=== PATIENT | female | born 1995 | race Caucasian/White ===

== ENCOUNTER 2017-06-06 02:53 | Emergency (ER) | payer OTHER ==
[2017-06-06] MEDS ORDERED: ONDANSETRON HCL INJ/PF 4 MG/2 ML SDV IV ONE (03:09)
[2017-06-06] MEDS ORDERED: NORMAL SALINE 1000 ML 1,000 ML IV PRN (03:09)
--- NOTE | 2017-06-06 03:11 | ER Document Report ---
ED Substance Abuse / Acc. OD <JC HENDERSON - Last Filed: 06/06/17 10:39> - General Mode of Arrival: Medic Information source: Patient, Friend, Emergency Med Personnel - [facility] Patient complains to provider of: Alcohol abuse Onset: Other - This evening Onset/Duration: Gradual Quality of pain: Achy Severity: None Pain Level: Denies Overdose of: Alcohol Associated Symptoms: None Similar symptoms previously: Yes Recently seen / treated by doctor: No <SAM DAWSON - Last Filed: 06/08/17 01:46> - General Chief Complaint: ETOH Abuse Stated Complaint: POSSIBLE INTOXICATION WITH ETOH Time Seen by Provider: 06/06/17 03:01 Notes: 2-year-old female presents to ED via EMS after being found laying on the ground outside of her [employer] tonight after drinking to the vodka, tequila, 2 beers , and to "trash cans ". Patient is very inebriated. Friend states the patient became extremely inebriated and states she could not do anything and lay down on the ground. Friend appears to be sober. Police was called who called EMS to bring her to the emergency room (SAM DAWSON) Past Medical History - General Information source: Patient - Social History Smoking Status: Never Smoker Cigarette use (# per day): No Chew tobacco use (# tins/day): No Smoking Education Provided: No Frequency of alcohol use: Social - Alcohol tonight Drug Abuse: None Occupation: active duty [facility]: [facility] Family History: Reviewed & Not Pertinent Patient has suicidal ideation: No Patient has homicidal ideation: No - Past Medical History Cardiac Medical History: Reports: None Pulmonary Medical History: Reports: None EENT Medical History: Reports: None Neurological Medical History: Reports: None Endocrine Medical History: Reports: None Renal/ Medical History: Reports: None Malignancy Medical History: Reports: None GI Medical History: Reports: None Musculoskeltal Medical History: Reports None Skin Medical History: Reports None Psychiatric Medical History: Reports: None Traumatic Medical History: Reports: None Infectious Medical History: Reports: None Surgical Hx: Negative Past Surgical History: Reports: None - Immunizations Immunizations up to date: Yes <SAM DAWSON - Last Filed: 06/08/17 01:46> Review of Systems - Review of Systems Constitutional: No symptoms reported EENT: No symptoms reported Cardiovascular: No symptoms reported Respiratory: No symptoms reported Gastrointestinal: No symptoms reported Genitourinary: No symptoms reported Female Genitourinary: No symptoms reported Musculoskeletal: No symptoms reported Skin: No symptoms reported Hematologic/Lymphatic: No symptoms reported Neurological/Psychological: No symptoms reported, Other - Inebriated -: Yes All other systems reviewed and negative <SAM DAWSON - Last Filed: 06/08/17 01:46> Physical Exam - Vital signs Interpretation: Normal - General General appearance: Appears well, Alert - HEENT Head: Normocephalic, Atraumatic Eyes: Normal Pupils: PERRL - Respiratory Respiratory status: No respiratory distress Chest status: Nontender Breath sounds: Normal Chest palpation: Normal - Cardiovascular Rhythm: Regular Heart sounds: Normal auscultation Murmur: No - Abdominal Inspection: Normal Distension: No distension Bowel sounds: Normal Tenderness: Nontender Organomegaly: No organomegaly - Back Back: Normal, Nontender - Extremities General upper extremity: Normal inspection, Nontender, Normal color, Normal ROM , Normal temperature General lower extremity: Normal inspection, Nontender, Normal color, Normal ROM , Normal temperature, Normal weight bearing. No: Tahira's sign - Neurological Neuro grossly intact: Yes Cognition: Normal Orientation: AAOx4 Stevens Coma Scale Eye Opening: Spontaneous Stevens Coma Scale Verbal: Oriented [place] Coma Scale Motor: Obeys Commands Stevens Coma Scale Total: 15 Speech: Normal Motor strength normal: LUE, RUE, LLE, RLE Sensory: Normal - Psychological Associated symptoms: Confused, Uncooperative, Other - Inebriated - Skin Skin Temperature: Warm Skin Moisture: Dry Skin Color: Normal <SAM DAWSON - Last Filed: 06/08/17 01:46> - Vital signs Vitals: Temp Pulse Resp BP Pulse Ox 98.2 F 83 16 136/82 H 98 06/06/17 03:00 06/06/17 03:00 06/06/17 03:00 06/06/17 03:00 06/06/17 03:00 Course - Laboratory Result Diagrams: 06/06/17 03:20 06/06/17 03:55 <JC HENDERSON - Last Filed: 06/06/17 10:39> - Laboratory Result Diagrams: 06/06/17 03:20 06/06/17 03:55 <SAM DAWSON - Last Filed: 06/08/17 01:46> - Re-evaluation Re-evalutation: 06/06/17 07:39 Report given to Jc HAMPTON. She will follow-up on this young lady's alcohol and discharge home when patient is alert and oriented and able to walk. (SAM DAWSON) - Vital Signs Vital signs: Temp Pulse Resp BP Pulse Ox 97.5 F 70 16 105/65 98 06/06/17 10:39 06/06/17 10:39 06/06/17 10:39 06/06/17 10:39 06/06/17 10:39 - Laboratory Laboratory results interpreted by me: 06/06/17 03:55 Sodium 146.2 H Chloride 109 H Discharge <JC HENDERSON - Last Filed: 06/06/17 10:39> <SAM DAWSON - Last Filed: 06/08/17 01:46> - Discharge Clinical Impression: Alcohol intoxication Qualifiers: Complication of substance-induced condition: with unspecified complication Qualified Code(s): F10.929 - Alcohol use, unspecified with intoxication, unspecified Condition: Stable Disposition: HOME, SELF-CARE Additional Instructions: Please do not drink to this capacity again. Return immediately for any new or worsening symptoms. Follow up with primary care provider, call tomorrow to make followup appointment.
[2017-06-06 03:30] LABS: ABSOLUTE EOSINOPHILS # (AUTO) 0.1 10^3/uL (0.0-0.6); ABSOLUTE LYMPHOCYTES (AUTO) 3.7 10^3/uL (0.5-4.7); ABSOLUTE MONOCYTES (AUTO) 0.5 10^3/uL (0.1-1.4); ABSOLUTE NEUT (AUTO) 4.4 10^3/uL (1.7-8.2); BASOPHILS % (AUTO) 0.6 % (0-2); EOSINOPHILS % (AUTO) 1.6 % (0-6); HEMOGLOBIN 13.6 g/dL (12.0-15.5); HGB HCT DIFFERENCE -0.2; LYMPHOCYTES % (AUTO) 42.2 % (13-45); MEAN CORPUSCULAR HEMOGLOBIN 29.4 pg (27.0-33.4); MEAN CORPUSCULAR HGB CONC 33.1 g/dL (32.0-36.0); MEAN CORPUSCULAR VOLUME 89 fl (80-97); MONOCYTES % (AUTO) 5.8 % (3-13); RED BLOOD COUNT 4.61 10^6/uL (3.72-5.28); SEGMENTED NEUTROPHILS % (AUTO) 49.8 % (42-78); WHITE BLOOD COUNT 8.9 10^3/uL (4.0-10.5)
[2017-06-06 04:20] LABS: ALANINE AMINOTRANSFERASE 27 U/L (9-52); ALBUMIN 4.2 g/dL (3.5-5.0); ALCOHOL 250 mg/dL (NONE DETECTED); ALKALINE PHOSPHATASE 60 U/L (38-126); ANION GAP 14 (5-19); ASPARTATE AMINO TRANSFERASE 24 U/L (14-36); BILIRUBIN,DIRECT 0.3 mg/dL (0.0-0.4); BILIRUBIN,TOTAL 0.4 mg/dL (0.2-1.3); BLOOD UREA NITROGEN 13 mg/dL (7-20); CALCIUM 8.4 mg/dL (8.4-10.2); CARBON DIOXIDE 23 mmol/L (22-30); CHLORIDE 109 mmol/L (98-107); CREATININE RESULT 0.73 mg/dL (0.52-1.25); GLUCOSE 87 mg/dL (75-110); POTASSIUM 4.1 mmol/L (3.6-5.0); SODIUM 146.2 mmol/L (137-145)
[2017-06-06 06:02] LABS: APPEARANCE,URINE CLEAR; BILIRUBIN,URINE NEGATIVE (NEGATIVE); GLUCOSE, URINE NEGATIVE (NEGATIVE); KETONES,URINE NEGATIVE (NEGATIVE); LEUKOCYTE ESTERASE,URINE NEGATIVE (NEGATIVE); NITRITE,URINE NEGATIVE (NEGATIVE); PROTEIN,URINE NEGATIVE (NEGATIVE); URINE SPECIFIC GRAVITY 1.003; UROBILINOGEN,URINE NEGATIVE mg/dL (<2.0)
[2017-06-06 07:14] LABS: URINE BARBITURATES SCREEN NEGATIVE; URINE METHADONE SCREEN NEGATIVE; URINE OPIATES LOW NEGATIVE; URINE PHENCYCLIDINE SCREEN NEGATIVE
[2017-06-06 10:53] VITALS: BP 105/65
== END 2017-06-06 10:50 | disposition home or self-care (01) ==
LOC: ER 02:53
DX: F10.129 Alcohol abuse with intoxication, unspecified (principal)
CPT/HCPCS: 99284; 96374; 36415; 80307 ×2; 84703; 85025; 80053; 81001; J2405